=== PATIENT | male | born 1935 | race Caucasian/White ===

== ENCOUNTER 2018-04-16 07:28 | Observation (INO) ==
[2018-04-16] MEDS ORDERED: Nitroglycerin 0.4 MG TAB.SUBL SL ONE (07:43)
[2018-04-16] MEDS ORDERED: Aspirin 81 MG TAB.CHEW PO ONE (07:43)
--- NOTE | 2018-04-16 07:53 | Emergency Department Note ---
Disposition Clinical Impression: NSTEMI (non-ST elevated myocardial infarction) Disposition: Admitted As Inpatient Condition: Fair General Adult HPI - General Chief complaint: ED Chest Pain Stated complaint: chest pain Time Seen by Provider: 04/16/18 07:41 - History of Present Illness Pain Scale: 6 - Related Data Home Medications Medication Instructions Recorded Confirmed Losartan/HCTZ [Hyzaar 50-12.5 1 tab PO DAILY 09/14/15 04/16/18 Tablet] Metoprolol [Lopressor] 50 mg PO DAILY 09/14/15 04/16/18 Aspirin [Lo-Dose Aspirin EC] 81 mg PO DAILY 11/26/17 04/16/18 Allergies Allergy/AdvReac Type Severity Reaction Status Date / Time No Known Allergies Allergy Verified 11/26/17 13:03 Past Medical History - Past Medical History Medical history: Reports: hypertension - Social History Smoking Status: Former smoker Alcohol use: Reports: none Drug use: Reports: none Course Vital Signs Temperature 97.7 F 04/16/18 07:34 Pulse Rate 63 04/16/18 07:34 Respiratory Rate 18 04/16/18 07:34 Blood Pressure 191/81 04/16/18 07:34 O2 Sat by Pulse Oximetry 93 04/16/18 07:34 Temperature 97.9 F 04/16/18 11:02 Pulse Rate 62 04/16/18 11:02 Respiratory Rate 20 04/16/18 11:02 Blood Pressure 153/72 04/16/18 11:02 O2 Sat by Pulse Oximetry 93 04/16/18 11:17 Oxygen Delivery Oxygen Delivery Nasal Cannula Medical Decision Making - Lab Data Result diagrams: 04/16/18 07:58 04/16/18 07:58 Lab Results 04/16/18 04/16/18 04/16/18 Range/Units 07:58 07:58 07:58 WBC 8.4 (4.3-11.1) K/mcL RBC 5.81 H (4.19-5.50) M/mcL Hgb 16.3 (12.9-16.9) g/dL Hct 50.9 H (37.5-50.1) % MCV 87.6 (83.0-100.0) fL MCH 28.1 (28.0-33.3) pg MCHC 32.0 (31.6-35.5) g/dL RDW 14.4 (11.5-14.5) % Plt Count 207 (140-400) K/mcL MPV 9.5 (9.4-12.4) fL Immature Gran % 0.4 (0-4) % Seg Neutrophils % 65.9 % Lymphocytes % 22.7 % Monocytes % 7.6 % Eosinophils % 2.6 % Basophils % 0.8 % Neutrophils # 5.5 (1.6-8.9) K/mcL Lymphocytes # 1.9 (0.6-4.6) K/mcL Monocytes # 0.6 (0.0-1.3) K/mcL Eosinophils # 0.2 (0.0-0.6) K/mcL Basophils # 0.1 (0.0-0.2) K/mcL PT 13.6 H (9.4-12.1) Seconds INR 1.2 APTT 34.3 (26.0-36.0) Seconds Sodium 141 (136-145) mEq/L Potassium 3.8 (3.5-5.1) mEq/L Chloride 106 (98-107) mEq/L Carbon Dioxide 27 (23-29) mEq/L BUN 22 (8-23) mg/dL Creatinine 1.34 H (0.70-1.30) mg/dL Est GFR ( Amer) > 60 (> 60) Est GFR (Non-Af Amer) 51 L (> 60) BUN/Creatinine Ratio 16 (6-26) Glucose 153 H (70-105) mg/dL Calculated Osmolality 298 (280-300) Calcium 9.7 (8.6-10.3) mg/dL Troponin I 0.12 H* (< 0.04) ng/mL Critical Care Time Critical Care Time: Yes Total Critical Care Time: 30 Attestation: The high probability of a clinically significant, sudden or life threatening deterioration of the [] system(s) required my full and direct attention, intervention and personal management. The aggregate critical care time was [] minutes. This time is in addition to time spent performing reported procedures but includes the following: [] Data Review and interpretation [] Patient assessment and monitoring of vital signs [] Documentation [] Medication orders and management Attestation Statement - Attestation Attestation: I examined this patient and my medical decision-making was reviewed with the Resident Physician. I agree with the documented findings, disposition and treatment plan as described except to the extent set forth below. Face to face time provided Patient to ED with CP. h/o CAD. ECG shows paced rhythm. patient in no acute distress
--- NOTE | 2018-04-16 08:08 | Emergency Department Note ---
Disposition Clinical Impression: NSTEMI (non-ST elevated myocardial infarction) Disposition: Admitted As Inpatient Condition: Fair Referrals: Damaso Mcintyre MD [Partnered Physician] - Forms: ED Satisfaction Letter Time of Disposition: 09:29 Chest Pain HPI - General Chief Complaint: ED Chest Pain Stated Complaint: chest pain Time Seen by Provider: 04/16/18 07:41 Source: patient Mode of arrival: ambulatory Limitations: no limitations Vital Signs Reviewed: Yes Nursing Notes Reviewed: Yes - History of Present Illness HPI Narrative: 82-year-old male presents to the emergency department complaining of chest pain. Says chest pains are gone on for 3 days. Patient does have history of stents that was 18 years ago. Patient had a pacemaker replaced approximately 6 months ago. He does have 60 month half-life. He recently just did see Dr. 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 Patient says the chest pain is 6 out of 10 he is having mild shortness of breath as well. He says is a dull ache, left side of his chest rating up into his chin. He says that this is similar last time he had GA. Patient otherwise having no other symptoms. He has no nausea or vomiting including no fevers, chills, headaches, blurry vision, neck pain, back pain, abdominal pain, change in bowel movement, pain with urination, pain or tingling going down arms or legs or generalized weakness. Severity scale (1-10): 6 - Related Data Home Medications Medication Instructions Recorded Confirmed Losartan/HCTZ [Hyzaar 50-12.5 1 tab PO DAILY 09/14/15 11/26/17 Tablet] Metoprolol [Lopressor] 50 mg PO DAILY 09/14/15 11/26/17 Aspirin [Lo-Dose Aspirin EC] 81 mg PO DAILY 11/26/17 11/26/17 Previous Rx's Medication Instructions Recorded HYDROcodone/Acet 5/325 mg [[place]gilvie 1 tab PO Q6HR PRN 5 Days #15 tablet 11/27/17 5-325 mg] Sulfamethoxazole/Trimeth DS 1 each PO BID #20 tablet 11/27/17 [Bactrim DS] Allergies Allergy/AdvReac Type Severity Reaction Status Date / Time No Known Allergies Allergy Verified 11/26/17 13:03 All systems ED: reviewed and negative except as stated. Review of Systems: As Per HPI Chest Pain PMH - Past Medical History Medical history: Reports: hypertension - Social History Smoking Status: Former smoker Alcohol use: Reports: none Drug use: Reports: none Physical Exam - General Limitations: no limitations General appearance: alert, in no apparent distress - Head Head exam: atraumatic, normocephalic, normal inspection - Eye Eye exam: Present: normal appearance, PERRL, EOMI - ENT ENT exam: normal exam, normal oropharynx, mucous membranes moist - Neck Neck exam: Present: normal inspection, full ROM, trachea midline - Chest Chest inspection: Present: normal inspection, symmetric chest wall rise - Respiratory Respiratory exam: Present: normal lung sounds bilaterally - Cardiovascular Cardiovascular exam: Present: regular rate, normal rhythm, normal heart sounds - Abdominal Exam Abdominal exam: Present: soft, Non-Tender. Absent: tenderness, distention, guarding, rebound, rigidity - Extremities Exam Extremities exam: Present: normal inspection, full ROM. Absent: tenderness, pedal edema - Expanded Lower Extremity Exam Neurovascular/Tendon exam: Present: normal capillary refill. Absent: pulse deficit, motor deficit, sensory deficit, tendon deficit - Back Exam Back exam: Present: normal inspection, full ROM. Absent: tenderness, CVA tenderness (R), CVA tenderness (L) - Neurological Exam Neurological exam: Present: alert, oriented X3 - Skin Skin exam: Present: warm, dry, intact, normal color Course Course Narrative: We have basic labs including CBC, BMP, troponin, EKG, chest x-ray will give nitroglycerin and aspirin. Patient most likely will be admitted for further evaluation. Vital Signs Temperature 97.7 F 04/16/18 07:34 Pulse Rate 63 04/16/18 07:34 Respiratory Rate 18 04/16/18 07:34 Blood Pressure 191/81 04/16/18 07:34 O2 Sat by Pulse Oximetry 93 04/16/18 07:34 Temperature 97.7 F 04/16/18 08:02 Pulse Rate 62 04/16/18 08:10 Respiratory Rate 18 04/16/18 08:10 Blood Pressure 121/66 04/16/18 08:10 O2 Sat by Pulse Oximetry 94 04/16/18 08:14 Oxygen Delivery Oxygen Delivery Room Air Chest Pain - [facility] Narrative Medical decision making narrative: 82-year-old male with 3 days of chest pain. After given 1 nitroglycerin his blood pressure did normalize and chest pain did get cut in half. Rate now is 210 chest pain. Labs did come back with an elevated troponin. I spoke with the on-call hospitalist Dr. Ruelas who did recommend we start patient on heparin and they will consult the patient to possible heart catheterization today or tomorrow. Patient does have an NSTEMI. There is no acute EKG changes. He does feel comfortable staying in the hospital. I did speak with the hospitalist who also agreed to admit the patient to their service. Patient can be admitted in stable condition. Patient is also given full dose aspirin here. Chest X-Ray 04/16/18 07:43 IMPRESSION: No acute cardiopulmonary process. D/ / Chacho Sharma MD / Chacho Sharma MD Interpreting Provider: Chacho Sharma MD - Medical Records Medical records reviewed: Yes I reviewed the patient's medical records. - Lab Data Lab results reviewed: Yes I reviewed the patient's lab results. Result diagrams: 04/16/18 07:58 04/16/18 07:58 Lab Results 04/16/18 04/16/18 04/16/18 Range/Units 07:58 07:58 07:58 WBC 8.4 (4.3-11.1) K/mcL RBC 5.81 H (4.19-5.50) M/mcL Hgb 16.3 (12.9-16.9) g/dL Hct 50.9 H (37.5-50.1) % MCV 87.6 (83.0-100.0) fL MCH 28.1 (28.0-33.3) pg MCHC 32.0 (31.6-35.5) g/dL RDW 14.4 (11.5-14.5) % Plt Count 207 (140-400) K/mcL MPV 9.5 (9.4-12.4) fL Immature Gran % 0.4 (0-4) % Seg Neutrophils % 65.9 % Lymphocytes % 22.7 % Monocytes % 7.6 % Eosinophils % 2.6 % Basophils % 0.8 % Neutrophils # 5.5 (1.6-8.9) K/mcL Lymphocytes # 1.9 (0.6-4.6) K/mcL Monocytes # 0.6 (0.0-1.3) K/mcL Eosinophils # 0.2 (0.0-0.6) K/mcL Basophils # 0.1 (0.0-0.2) K/mcL PT 13.6 H (9.4-12.1) Seconds INR 1.2 APTT 34.3 (26.0-36.0) Seconds Sodium 141 (136-145) mEq/L Potassium 3.8 (3.5-5.1) mEq/L Chloride 106 (98-107) mEq/L Carbon Dioxide 27 (23-29) mEq/L BUN 22 (8-23) mg/dL Creatinine 1.34 H (0.70-1.30) mg/dL Est GFR ( Amer) > 60 (> 60) Est GFR (Non-Af Amer) 51 L (> 60) BUN/Creatinine Ratio 16 (6-26) Glucose 153 H (70-105) mg/dL Calculated Osmolality 298 (280-300) Calcium 9.7 (8.6-10.3) mg/dL Troponin I 0.12 H* (< 0.04) ng/mL - Radiology Data Radiology results reviewed: Yes I reviewed the patient's radiology results. - EKG Data EKG attestation: Yes I reviewed and interpreted this EKG. EKG results narrative: EKG done at 0 743 review myself and attending shows a paced rhythm at a rate of 63, WA interval 65, QRS 167, QTC 459. There is no acute ST changes no acute T- wave changes patient does not meet scar posterior criteria. No hypertrophy, heart strain, heart block. No Marita PW/Brugada/HOCM. Unchanged when compared with old EKG done 11/25/17 Heart Score - Score History: Moderately Suspicious EKG: Non Specific repolarisation Disturbance Age: Greater than 65 Risk Factors: Equal/Greater than 3 risk factor or history of atherosclerotic disease Troponin: Less than normal limit HEART Score Total: 6
[2018-04-16 08:25] LABS: Basophils # 0.1 K/mcL (0.0-0.2); Basophils % 0.8 %; Eosinophils # 0.2 K/mcL (0.0-0.6); Eosinophils % 2.6 %; Hematocrit 50.9 % (37.5-50.1); Hemoglobin 16.3 g/dL (12.9-16.9); Immature Granulocytes % 0.4 % (0-4); Lymphocytes # 1.9 K/mcL (0.6-4.6); Lymphocytes % 22.7 %; Mean Corpuscular Hemoglobin 28.1 pg (28.0-33.3); Mean Corpuscular Volume 87.6 fL (83.0-100.0); Mean Platelet Volume 9.5 fL (9.4-12.4); Monocytes # 0.6 K/mcL (0.0-1.3); Monocytes % 7.6 %; Neutrophils # 5.5 K/mcL (1.6-8.9); Platelet Count 207 K/mcL (140-400); Red Blood Count 5.81 M/mcL (4.19-5.50); Red Cell Distribution Width 14.4 % (11.5-14.5); Segmented Neutrophils % 65.9 %
[2018-04-16 08:33] LABS: INR 1.2; Prothrombin Time 13.6 Seconds (9.4-12.1)
[2018-04-16 08:36] LABS: Activated Partial Thrombo Time 34.3 Seconds (26.0-36.0)
[2018-04-16 08:40] LABS: BUN/Creatinine Ratio 16 (6-26); Blood Urea Nitrogen 22 mg/dL (8-23); Calcium 9.7 mg/dL (8.6-10.3); Carbon Dioxide 27 mEq/L (23-29); Chloride 106 mEq/L (98-107); Glucose 153 mg/dL (70-105); Osmolality,Calculated 298 (280-300); Potassium 3.8 mEq/L (3.5-5.1); Sodium 141 mEq/L (136-145); eGFR For Non-African Americans 51 (> 60)
[2018-04-16 09:12] LABS: Troponin I 0.12 ng/mL (< 0.04)
[2018-04-16] MEDS ORDERED: *HR* Heparin 5,000 UNIT/ML VIAL IVP PRN ×2 (09:20)
[2018-04-16] MEDS ORDERED: *HR* Heparin 5,000 UNIT/ML VIAL IVP ONE (09:20)
[2018-04-16] MEDS ORDERED: Heparin 25,000 UNIT/500 ML D5W 25,000 UNIT/500 ML BAG IVC SCH (09:30)
[2018-04-16] MEDS ORDERED: traMADol 50 MG TABLET PO PRN (09:36)
[2018-04-16] MEDS ORDERED: Naloxone 0.4 MG/ML INJ IVP PRN (09:36)
[2018-04-16] MEDS ORDERED: Nitroglycerin 0.4 MG TAB.SUBL SL PRN (09:39)
--- NOTE | 2018-04-16 10:34 | Cardiology Consult Note ---
Date of Encounter: 04/16/18 Time of Encounter: 10:00 Assessment and Plan (1) NSTEMI (non-ST elevated myocardial infarction) Current Visit: Yes Status: Acute type I vs type II, high SRINIVAS 4 CKD 3 P: LHC NPO heparin drip d/w pt and family re risk of BULL given CKD c/w home ASA, BB and ARB start lipitor 20 (2) CAD in [place] artery Current Visit: Yes Status: Acute s/p remote stent. class III angina. need mod statin. 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 All questions were answered. Thank you for involving us in the care of your patient. Please call with any questions. History of Present Illness Consult date: 04/16/18 Requesting physician: Hernan Caban Consult reason: chest pain, elevated troponin Chief complaint: BARNES, cp History of present illness: Mr. 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 Progressive BARNES several months, ET 100 yards, no PND/orthopnea, LE edema. Chest pain 1 wk, daily progressively longer, lasting minutes, yesterday >15 minutes, central chest, pressure/vague dull pain, 2-7/10, vague radiation to neck, walking or at rest, non-positional or pleuritic, no obvious worsening or alleviating factors, didn't take NTG at home, associated with worse dyspnea. Persistent CP yesterday prompted ED visit, BP initially 190/80, normalized after NTG SLx1 with resolution of cp. No syncope, dizziness, palpitations. Lying flat, no O2 ECG AV pacing, trop 0.12 taking ASA 81 daily, heparin gtt started No bleeding, no surgery planned, CKD 3, Cr 1.3 [id number] device check: no events, fnx nl [id number] device St Parag: AP 48%, B[employer] SHOP MANAGER 99%, AMS 14, TTE [id number] Normal LV systolic function, LVEF 60-65%. There is atypical septal motion consistent with ventricular pacing. Mild concentric left ventricular hypertrophy. Mild left ventricular diastolic dysfunction. Normal right ventricular structure and function. A device lead was visualized in the right atrium and right ventricle. No significant valvular dysfunction. Unable to estimate RVSP due to lack of TR jet. Past Med Surg Social Fam HX - Past Medical History Medical history: hypertension Additional medical history: [place] Psychiatric history: no psych history - Past Surgical History Additional surgical history: Aorta (plaque). 1 carotid stent. 6 inches of colon removed. Procedure for kidney stones - Social History Smoking Status: Former smoker Smokeless Tobacco Status: No Alcohol use: none Drug use: none - Additional Family History Additional family history: noncontributory Medications and Allergies Losartan/HCTZ [Hyzaar 50-12.5 Tablet] 1 tab PO DAILY 09/14/15 [History] Metoprolol [Lopressor] 50 mg PO DAILY 09/14/15 [History] Aspirin [Lo-Dose Aspirin EC] 81 mg PO DAILY 11/26/17 [History] 3 Allergy/AdvReac Type Severity Reaction Status Date / Time No Known Allergies Allergy Verified 11/26/17 13:03 All Systems Review: The remainder of the systems were reviewed and are negative - Constitutional Constitutional: fatigue - Cardiovascular Cardiovascular: as per HPI - Respiratory Respiratory: dyspnea - Hematological/Lymphatic Hematologic/Lymphatic: no easy bleeding Physical Examination Vital Signs, Last 4 Hours Pulse Pulse Ox 04/16/18 09:50 60 96 Other: General: NAD, AAO, cogent HEENT: anicteric Neck: no JVD, no bruits Chest: CTA B/L, no W/R/C Heart: RRR, S1/S2, no S3/S4, no M/G/R Abdominal: BS +, soft, ND, NT Peripheral Pulses: radial pulse 2+ B/L, DP 2+ B/L Skin/Extremities: no cyanosis, no LE edema Neurological: grossly non-focal. Results 04/16/18 07:58 04/16/18 07:58 - Imaging and Cardiology Echo: report reviewed Other Results: Device check reviewed - EKG Interpretation EKG results cardiology: personally reviewed ( [employer] MANAGER) Consult Discharge Plan - Plan Referrals: Damaso Mcintyre MD [Primary Care Provider] -
[2018-04-16] MEDS: Metoprolol XL (24 HR) Succ 50 MG TAB.ER.24H PO SCH (10:35)
[2018-04-16 10:42] LABS: INR 1.3; Prothrombin Time 14.5 Seconds (9.4-12.1)
[2018-04-16 10:51] LABS: Chol/HDL Ratio 5.5 (0-4.9)
[2018-04-16 10:53] LABS: Albumin 3.7 g/dL (3.5-5.7); Albumin/Globulin Ratio 1.2 (1.1-2.2); Bilirubin,Direct 0.1 mg/dL (0.0-0.2); Bilirubin,Indirect 0.6 mg/dL (0.0-1.2); Bilirubin,Total 0.7 mg/dL (0.3-1.0); Globulin 3.2 g/dL (2.4-3.5); Total Protein 6.9 g/dL (6.4-8.9)
--- NOTE | 2018-04-16 11:22 | Internal Med History&Physical ---
Date of Encounter: 04/16/18 Time of Encounter: 11:17 Internal Medicine - H&P: HPI Chief complaint: chest pain Plans for Post Hospital Care: Home History of present illness: Mr. Nuñez is a 82 year old male past medical history significant for coronary artery disease, [place] in 1999, CKD, CHF s/p pacemaker. Patient presented to the ED due to chest pain which started on Saturday while he was walking to get the mail. Patient reports that he did not come to the ED on Saturday because he thought the pain was going to go away, he did not take any pain medication for it. Patient describes the pain as constant, dull 8/10 retro-sternal, radiating to his neck and lasting around 10 minutes with which episode. He also reports shortness of breath associated with the chest pain, denies recent similar episodes of chest pain. Reports that he has his pacemaker revised about a week ago and was told that everything was ok. Denies nausea, vomiting or diarrhea. Past Med Surg Social Fam HX - Past Medical History Medical history: hypertension Additional medical history: [place] Psychiatric history: no psych history - Past Surgical History Additional surgical history: Aorta (plaque). 1 carotid stent. 6 inches of colon removed. Procedure for kidney stones - Social History Smoking Status: Former smoker Smokeless Tobacco Status: No Alcohol use: none Drug use: none Internal Medicine - H&P: Meds Losartan/HCTZ [Hyzaar 50-12.5 Tablet] 1 tab PO DAILY 09/14/15 [History] Metoprolol [Lopressor] 50 mg PO DAILY 09/14/15 [History] Aspirin [Lo-Dose Aspirin EC] 81 mg PO DAILY 11/26/17 [History] 3 Allergy/AdvReac Type Severity Reaction Status Date / Time No Known Allergies Allergy Verified 11/26/17 13:03 All Systems PM: A 10-system review of systems was performed and is negative for pertinent findings except as documented above in the HPI. - Constitutional Constitutional: no chills, no fever(s), no falls, no weakness - EENT Eyes: no change in vision, no floaters Nose, mouth and throat: no bleeding gums, no dysphagia - Cardiovascular Cardiovascular ROS IM: chest pain, dyspnea, dyspnea on exertion, no claudication , no diaphoresis, no irregular heart rhythm, no lightheadedness, no palpitations - Respiratory Respiratory: no cough - Gastrointestinal Gastrointestinal: no abdominal pain, no diarrhea, no loose stools, no nausea - Genitourinary Genitourinary ROS male: no dysuria, no hematuria - Musculoskeletal Musculoskeletal ROS IM: no back pain - Neurological Neurological ROS: no dizziness, no headache(s), no weakness - Psychiatric Psychiatric: no anxiety, no irritability - Allergic/Immunologic Allergic/Immunologic: no wheezing (Rest of the review pf system negative. ) - Constitutional Vitals: Temp Pulse Resp BP Pulse Ox 97.7 F 60 18 121/66 96 04/16/18 08:02 04/16/18 09:50 04/16/18 08:10 04/16/18 08:10 04/16/18 09:50 Exam: General: Alert and oriented x4. Mild distress due to chest discomfort. Skin: Normal color, no rash, no lesions. HEENT: EOM, pupils equal, round and reactive. Cardiovascular: RRR, Normal S1 & S2, no rubs, murmurs or gallops. Lungs: Clear to auscultation b/l, no wheezes, rales or crackles. Abdomen: Obese, Soft, non-tender, no rigidity. NABS in all 4 quadrants. Extremities: No deformity, no edema or tenderness, no joint swelling or clubbing. Neurological:Normal cognition and motor skills. Rest of the physical exam is non contributory Internal Med - H&P Results - Labs CBC & Chem 7: 04/16/18 07:58 04/16/18 07:58 Labs: Cardiac Enzymes 04/16/18 Range/Units 10:16 Troponin I 0.18 H* (< 0.04) ng/mL Liver Function 04/16/18 Range/Units 10:16 Total Bilirubin 0.7 (0.3-1.0) mg/dL Direct Bilirubin 0.1 (0.0-0.2) mg/dL AST 23 (13-39) Units/L ALT 16 (7-52) Units/L Alkaline Phosphatase 40 (34-104) Units/L Albumin 3.7 (3.5-5.7) g/dL - Assessment and plan (1) NSTEMI (non-ST elevated myocardial infarction) Current Visit: Yes Status: Acute Assessment and plan: Presented with chest pain and elevated trops. Plan Started on Heparin drip Nitroglycerin 0.4mg SubL Q5Min x3 for chest pain PRN. Asprin 325mg/PO x1 aspirin 81mg/PO daily Plavix or Brillinta as per cardiology discretion Cardiology consulted Serial trops Tramadol 50mg/PO Q6HRs PRN for pain Scheduled for [facility] Lipid panel started on low dose metoprolol 50mg/PO daily telemetry monitoring. Atorvastatin 40mg/PO daily. Will continue Losartan 25mg/PO daily. (2) CAD in [place] artery Current Visit: Yes Status: Chronic Assessment and plan: Plan of care as above. (3) CKD (chronic kidney disease) stage 3, GFR 30-59 ml/min Current Visit: Yes Status: Chronic Assessment and plan: Kidney function stable consider gentle IV hydration with at least 1 litter of fluids after the LCH. (4) Hypertension Current Visit: Yes Status: Chronic Assessment and plan: Patient re-started on his home antihypertensive medications. Qualifiers: Hypertension type: unspecified Qualified Code(s): I10 - Essential (primary ) hypertension - Time Spent With Patient Total time spent is greater than 50% in coordination of care (as documented) at patient's floor/unit and/or counseling patient: 25 - 35 minutes
[2018-04-16] MEDS ORDERED: *HR* Heparin 10,000 UNIT/10 ML VIAL ONE (12:20)
[2018-04-16] MEDS ORDERED: Verapamil 5 MG/2 ML VIAL ONE (12:20)
[2018-04-16] MEDS ORDERED: 0.9 % Sodium Chloride 1,000 ML ONE ×2 (12:21→12:42)
[2018-04-16] MEDS ORDERED: ISOVUE-370 200 ML INFUS..BTL IV ONE (12:21)
[2018-04-16] MEDS ORDERED: Nitroglycerin 1,000 MCG/10 ML VIAL IV ONE (12:21)
[2018-04-16] MEDS ORDERED: Heparin 1,000 UNITS/500 mL 500 ML ONE (12:21)
--- NOTE | 2018-04-16 12:47 | Pre-Sedation Evaluation ---
Pre-sedation evaluation - Pre-sedation checklist Date of procedure: 04/16/18 Procedure: [facility] Recent Vitals: Last Vital Signs Temp 97.9 F 04/16/18 11:02 Pulse 62 04/16/18 11:02 Resp 20 04/16/18 11:02 BP 153/72 04/16/18 11:02 Pulse Ox 93 04/16/18 11:17 H&P (including ROS) documented in medical record: Yes Previous reaction to sedatives/anesthetics: No Dietary Status: NPO 6 hours prior to procedure Airway Assessment: Patient can open mouth completely, TMJ function normal Dentition: dentures removed ASA Classification *see protocol: CLASS II-Mild systemic disease Plan of Care: Pt appropriate candidate for procedure/moderate/conscious sedation , Risks/benefits of procedure/sedation discussed w/ patient/family Cardiac Registry (Cardio Only) - Functional Capacity Functional Capacity: >=4 METS with symptoms - Clincal Frailty Scale Clinical Frailty Scale: Managing Well
[2018-04-16] MEDS ORDERED: *HR* FentaNYL (PF) 100 MCG/2 ML VIAL ONE (12:59)
[2018-04-16] MEDS ORDERED: *HR* Midazolam HCl 2 MG/2 ML VIAL ONE (12:59)
[2018-04-16] MEDS ORDERED: Tirofiban 12.5 MG/250ML 12.5 MG/250 ML BAG ONE (13:27)
[2018-04-16] MEDS ORDERED: *HR* Adenosine 6 MG/2 ML VIAL IVP ONE (13:28)
--- NOTE | 2018-04-16 13:54 | Invasive Diagnostic Lab Proc ---
Name: Sanju Nuñez Date of Study: 04/16/2018 Date: 1935 Ht: 66.1in Medical Record#: [id number] Age: 82 Wt: 208.34lb Gender: Male BSA: 2.04 Order #: [id number] BMI: 33.48 Physicians Procedure Physician: Geovanny Angulo MD, [facility] Referring MD: Referring MD: Staff Name Position Time In Jerrell Cedeno RN Labor Relations Specialist 12:28 PM Galen Mayers RT (R) Monitor 12:28 PM Sydney Post RT (R) Scrub 12:28 PM Indications Indication Non-Stemi Procedures Performed Procedure L HRT ARTERY/VENTRICLE ANGIO PRQ CARD YESSICA STENT W/ANGIO 1 VSL Pre-Procedure Checklist Informed consent is complete signed and on chart. H&P is on chart. ID band is on and ID verified with patient. Patient NPO for procedure The procedure was described for the patient and questions were answered. Blood Pressure: 153/72 ECG is on chart. Rhythm: Paced Plan of Care Patient will tolerate the procedure without complications. Adequate level of comfort will be maintained. Hemodynamics will remain stable Patient will recover from procedure without complications. Respiratory function will be maintained. Cardiac rhythm will remain stable. Patient temperature will be maintained. Patient and/or family have verbalized understanding of the procedure. Patient Education Chief Complaint/Reason for Test: Cardiac Cath Developmental Category: Geriatric (65+ years) Developmentally Appropriate for Age: Yes Learning Barriers: None Education Needs: Procedure Education Method: Verbal Information Taught: Cardiac Cath Educational Evaluation: Able to repeat information Intravenous Access Time IV Size Location DC'd Fluid/Drip Rate Units RN 01:02 PM 20g 1 07/04" Patent On Arrival Rt Antecubital 0.9NaCl 25 ml/hr Jerrell Cedeno RN Allergies NO KNOWN DRUG ALLERGIES Vital Signs Time BP (mmHg) HR (bpm) O2 Sat. RR (bpm) LOC 01:02 PM 153 / 72 62 94 % 16 5 = Fully awake and oriented or at pre-proc level 12:54 PM / % 4 = Oriented but drowsy 01:09 PM / % 4 = Oriented but drowsy 01:24 PM / % 5 = Fully awake and oriented or at pre-proc level 01:04 PM 173 / 97 61 95 % 25 01:08 PM 156 / 76 59 96 % 17 01:13 PM 132 / 70 61 93 % 23 01:18 PM 95 / 53 60 89 % 15 01:24 PM 112 / 54 60 91 % 15 01:28 PM 110 / 58 60 91 % 25 01:33 PM 115 / 61 60 92 % 14 01:38 PM 124 / 71 60 92 % 31 Procedural Medications Time Medication Dose Units Method Given By 01:01 PM Oxygen 2 L/min nasal cannula Jerrell Cedeno RN 01:05 PM Versed 2 mg Intravenous Jerrell Cedeno RN 01:05 PM Fentanyl 50 mcg Intravenous Jerrell Cedeno RN 01:12 PM Lidocaine 2% 0.5 ml Subcutaneous Geovanny Angulo MD, FAC 01:13 PM Heparin 2000 units Nitroglycerin 200 mcg Verapamil 2.5 mg Intraarterial Geovanny Angulo MD, FAC 01:33 PM Aggrastat Bolus: 46 ml Intravenous Jerrell Cedeno RN 01:33 PM Aggrastat 12.5mg/250ml 8.25 ml Intravenous Jerrell Cedeno RN 01:34 PM Nitroglycerin 100 mcg Intravenous Geovanny Angulo MD 01:41 PM Plavix 600 mg Orally Jerrell Cedeno RN ASA Classification: CLASS II- Mild systemic disease (i.e. well-controlled diabetes, hypertension, asthma, cigarette smoking) Dejan Score Preprocedure Postprocedure Activity 2- Moves 4 extremities sustained head lift Activity 2- Moves 4 extremities sustained head lift Circulation 2- SBP +/= 20 points of pre-anesthetic level Circulation 2- SBP +/= 20 points of pre-anesthetic level Consciousness 2- Awake and alert oriented x 3 Consciousness 2- Awake and alert oriented x 3 O2 Saturation 2- Able to maintain O2 satruation of 92% on room air O2 Saturation 2- Able to maintain O2 satruation of 92% on room air Respiratory 2- Able to deep breathe and cough well Respiratory 2- Able to deep breathe and cough well Total Score 10 Total Score 10 Contrast Agent: Isovue Diagnostic Contrast: 58 ml Total Contrast: 58 ml Fluoro Dose: 34 mGy Activated Clotting Time Time Seconds to Clot 01:31 PM 331 Procedure Log Time Note Enter By 12:28 PM Jerrell Cedeno RN Position: Labor Relations Specialist Time in: 12:28 [email or web address] 12:28 PM Galen Mayers RT (R) Position: Monitor Time in: 12:28 [email or web address] 12:28 PM Sydney Post RT (R) Position: Scrub Time in: 12:28 [email or web address] 12:29 PM Patient charges- Angio tray pack, Navilyst 3mm J, Pulse Oximetry and ACIST tubing and transducer [email or web address] 12:53 PM CathStat 12:53 PM Pt arrived to assistant laboratory director 1 at 12:53 [email or web address] 12:53 PM Case Delayed No [email or web address] 12:54 PM Time: 12:54 Patient comfortable and pain free: Yes [email or web address] 12:54 PM Time: 12:54LOC: 5 = Fully awake and oriented or at pre-proc level [email or web address] 12:54 PM Clinical Presentation: Non-STEMI ilson 12:55 PM Physician arrived 12: [email or web address] 12:55 PM Meet and greet completed ilson 12:55 PM Sign in performed according to hospital policy. Informed consent was obtained. ilson 12:56 PM Procedure start 12:55 [email or web address] 01:00 PM Vitals capture started with the following parameters, Patient=Adult, Interval=5 min, Initial Tgipqdwz=073 mmHg, Deflation Rate=3 mmHg, Cuff placed on Right Arm 01:00 PM Recorded ECG: HR=63 Condition=Condition 1 01:01 PM Hair removed from procedure site in procedure lab using clippers. Right wrist prepped with Chloraprep by Sydney Post RT (R), then patient was draped. Skin intact. : PM Hair removed from procedure site in procedure lab using clippers. Bilateral groin prepped with Chloraprep by Sydney Post (R), then patient was draped. Skin intact. : PM Time: 13: Oxygen on at 2 L/min per nasal cannula by Jerrell Cedeno RN :02 PM ASA Class CLASS II- Mild systemic disease (i.e. well-controlled diabetes, hypertension, asthma, cigarette smoking) [email or web address] 01:02 PM Vitals capture started with the following parameters, Patient=Adult, Interval=5 min, Initial Ksvdqzit=340 mmHg, Deflation Rate=3 mmHg, Cuff placed on Right Arm 01:04 PM HR=61 bpm, YFAS=532/97 mmhg, SpO2=95.0 %, Resp=25 B/min 01:05 PM Time: 13:05 Versed 2 mg Intravenous Given by Jerrell Cedeno RN [email or web address] 01:05 PM Time: 13:05 Fentanyl 50 mcg Intravenous Given by Jerrell Cedeno RN [email or web address] 01:08 PM HR=59 bpm, GZEQ=052/76 mmhg, SpO2=96.0 %, Resp=17 B/min 01:09 PM Time: 12:54LOC: 4 = Oriented but drowsy [email or web address] 01:09 PM Time: 12:54 Patient comfortable and pain free: Yes [email or web address] 01:09 PM Pressure channel 1 zeroed. 01:12 PM Time out was performed according to hospital policy. Conscious sedation and anesthesia was achieved (see medication log with in this report above) [email or web address] 01:12 PM Time: 13:12 0.5 ml Lidocaine 2% to right radial Subcutaneous Given by Geovanny Angulo MD, [facility] [email or web address] 01:13 PM Access obtained by percutaneous puncture. 6Fr 10cm Terumo Glidesheath sheath placed in right Radial artery. [id number] [email or web address] :13 PM HR=61 bpm, VHJW=909/70 mmhg, SpO2=93.0 %, Resp=23 B/min 01:13 PM 0.035 145cm Navilyst 3mmJ wire [id number] [email or web address] 01:13 PM Time: 13:13 Patient given 2,000 units Heparin, 200 mcg Nitroglycerin, and 2.5 mg Verapamil Intraarterial by Geovanny Angulo MD, [facility]. This is given to reduce risk of vessel spasm and thrombosis. [email or web address] 01:15 PM 5Fr TIG catheter inserted over the wire [facility] [email or web address] 01:16 PM Recorded Pressure: Ao, HR=60, Condition=Condition 1 (Aorta) Ao 86/42/59 01:16 PM LCA angiography performed in multiple views. [email or web address] 01:18 PM HR=60 bpm, NIBP=95/53 mmhg, SpO2=89.0 %, Resp=15 B/min 01:19 PM RCA angiography performed in multiple views. 01:19 PM Recorded Pressure: Ao, HR=60, Condition=Condition 1 (Aorta) Ao 101/54/72 01:20 PM Coronary Dominance: right [email or web address] 01:20 PM Lesion found in Proximal LAD. Pre Stenosis: 70 Pre SRINIVAS Flow: 01:21 PM Proximal Left Anterior Descending Coronary Artery with 70% stenosis. If graft is supplying this territory, 0 % stenosis. bw:21 PM Lesion found in Mid Circumflex. Pre Stenosis: 60 Pre SRINIVAS Flow: :21 PM Circumflex, Obtuse Marginal, Left Posterior Descending, and Left Posterolateral Coronary Arteries with 60 % stenosis. If graft is supplying this area, 0 % stenosis bw:21 PM Catheter removed : PM 5Fr Pigtail catheter inserted over the wire [facility] :21 PM Lesion found in Mid RCA. Pre Stenosis: 99 Pre SRINIVAS Flow: :21 PM Right Coronary, Right Posterior Descending Arteries with Right Posterolateral and Acute Marginal branches with 99 % stenosis. If graft is supplying this area, 0 % stenosis bw: PM Catheter crossed the aortic valve and was selectively placed in the left ventricle. Pressures recorded on pullback for left heart catheterization. PM Bolus angiogram of left Ventricle complete: 10 ml/sec for a total of 30 mls PM Recorded Pressure: LV, HR=61, Condition=Condition 1 (Left Ventricle) LV 108/9/18 : PM HR=60 bpm, GREA=127/54 mmhg, SpO2=91.0 %, Resp=15 B/min : PM Recorded Pressure: LV, Ao, HR=69, Condition=Condition 1 (Left Ventricle) LV 112/13/35, (Aorta) Ao 123/50/74 : PM Time: 13:09 Patient comfortable and pain free: Yes PM Time: 13:09LOC: 4 = Oriented but drowsy PM Catheter removed PM Inflation device was opened. : PM 6Fr JR 4 [place] Bright-Tip guide catheter was used to cannulate the PCI vessel successfully. reused? No PM drawing ACT PM .014 [place] 190cm guide wire across target lesion- successful. reused? No PM Recorded Pressure: Ao, HR=60, Condition=Condition 1 (Aorta) Ao 113/53/76 :28 PM HR=60 bpm, UPLO=520/58 mmhg, SpO2=91.0 %, Resp=25 B/min : PM 2.0 mm x 20 mm Emerge Monorail balloon across target lesion- successful. reused? No [email or web address] 01:30 PM Balloon inflated @ 6 lukas for 18 seconds [email or web address] 01:30 PM Balloon catheter removed intact. [email or web address] 01:31 PM At 13:31 the ACT was 331 seconds. [email or web address] 01:32 PM 4.0mm x 20mm Synergy drug-eluting stent across target lesion- successful Lot #[id number] [email or web address] 01:33 PM HR=60 bpm, MVBH=123/61 mmhg, SpO2=92.0 %, Resp=14 B/min 01:33 PM Time: 13:33 Aggrastat Bolus: 46 ml Intravenous Given by Jerrell Cedeno RN Monzon pump [email or web address] 01:33 PM Time: 13:33 Aggrastat 12.5mg/250ml 8.25 ml Intravenous Given by Jerrell Cedeno RN Monzon pump [email or web address] 01:33 PM Stent deployed @ 11 lukas for 14 seconds [email or web address] 01:34 PM Time: 13:34 Nitroglycerin 100 mcg Intravenous Given by Geovanny Angulo MD [email or web address] 01:34 PM Stent delivery system removed intact. [email or web address] 01:34 PM Guide wire removed intact. [email or web address] 01:35 PM Guide catheter removed intact. [email or web address] 01:36 PM Arterial sheath pulled, Vasc Band closure device used and was Successful S/N. [email or web address] 01:36 PM 10 ml air in Vasc Band. [email or web address] 01:36 PM Procedure completed at 13:36 04/16/2018 [email or web address] 01:37 PM Sign out completed: Radiation Dose 422.58 mGy, 34.3363 Gy/cm2 Fluoro Time: 4.0 Isovue 370 - 200ml contrast 58 ml given by Geovanny Angulo MD, [facility]. Complications: None. The patient was discharged out of the label paster in stable condition. Cardiac Rehab Consult needed: YesConfirmed administered medications: Yes [email or web address] 01:37 PM Isovue 370 - 200ml,1 Bottle(s) used. [email or web address] 01:37 PM Estimated Blood Loss: less than 20cc [email or web address] 01:37 PM Post ECG Paced [email or web address] 01:37 PM Post Blood Pressure 115/61 [email or web address] 01:37 PM 13:37 Post Pulses Rt Radial 1+ [email or web address] 01:38 PM Information taught Cardiac Cath and PCI [email or web address] 01:38 PM Education needs Procedure, Plan of Care, and Disease Process [email or web address] 01:38 PM HR=60 bpm, LKXH=076/71 mmhg, SpO2=92.0 %, Resp=31 B/min 01:38 PM Learning barriers :Sedated [email or web address] 01:38 PM Education Methods Verbal [email or web address] 01:38 PM Education evaluation Needs further instruction [email or web address] 01:38 PM Site status No bleeding/hematoma - Rt Wrist as reported by Sydney Post RT (R) at 13:38 [email or web address] 01:38 PM Delay to floor No [email or web address] 01:38 PM Complications: None 2 01:39 PM Time: 13:24LOC: 5 = Fully awake and oriented or at pre-proc level [email or web address] 01:39 PM Time: 13:24 Patient comfortable and pain free: Yes [email or web address] 01:41 PM Family placed in consult room. [email or web address] 01:41 PM Time: 13:41 Plavix 600 mg Orally Given by Jerrell Cedeno RN 01:42 PM Vitals capture stopped. 01:44 PM Report given to zhane CHEEK Pt taken to 2A Room #11. 13:42 [email or web address] 01:47 PM Patient out of room: 13:47 [email or web address] Complications Complication None None Hemodynamics Pressures Site Systolic/A Wave Diastolic/V Wave Mean AO 86 42 59 AO 101 54 72 LV 108 9 18 LV 112 13 35 AO 123 50 74 AO 113 53 76 Post Procedure Information Blood Pressure: 115/61 mmHg Rhythm: Paced Post procedural instructions were given Closure Device Time Device Success/Fail 04/16/2018 1:36:00 PM Mechanical Compression Successful Site Checks Time Location Status Staff Sheath In? Note 01:38 PM Rt Wrist No bleeding/hematoma Sydney Post RT (R) Pulses Time Site Pre-Procedure Post-Procedure Note 04/16/2018 1:02:00 PM Bilateral DP & PT 1+ 04/16/2018 1:02:00 PM Rt Radial 2+ 1:37:00 PM Rt Radial 1+ Updated by Galen Mayers RT (R) on 04/16/2018 1:47:19 PM RT Pepper electronically signed on 04/16/2018 1:47:42 PM with status of Final
[2018-04-16] MEDS ORDERED: Tirofiban 12.5 MG/250ML 12.5 MG/250 ML BAG IVC SCH (14:00)
[2018-04-16 23:40] VITALS: BP 145/73
[2018-04-17] MEDS ORDERED: Aspirin Enteric Coated 81 MG Tablet PO SCH (09:00)
[2018-04-17 11:12] LABS: Hematocrit 49.5 % (37.5-50.1); Hemoglobin 16.2 g/dL (12.9-16.9)
[2018-04-17] MEDS: Metoprolol XL (24 HR) Succ 50 MG TAB.ER.24H PO SCH (11:59)
--- NOTE | 2018-04-17 12:07 | Discharge Summary ---
- NOTES TO OUTPATIENT PROVIDER Notes to Outpatient Provider: 82-year-old male with coronary artery disease, chronic kidney disease, CHF with pacemaker was admitted for NSTEMI, status post left heart catheter with stent placement. Patient has since been chest pain- free and denies shortness of breath. Access site is clean without any symptoms. Lipitor and Plavix has been added to the patient's home regimen of aspirin, metoprolol and losartan hydrochlorothiazide. The patient is discharged in clinically stable condition to follow up with primary care physician and cardiology. Plan of care discussed, verbalized understanding. Orders not resulted at time of discharge: Pending orders 04/16/18 10:48 Left Heart Cath [CL Cardiac Catheterization] [CL] Routine 04/16/18 13:51 ECG 12 lead ECG [ECG] Stat 04/17/18 03:26 Basic Metabolic Panel AM 0400 Magnesium AM 0400 Phosphorous AM 0400 04/17/18 04:00 Hemoglobin and Hematocrit [HEME] AM 0400 04/17/18 06:00 ECG 12 lead ECG [ECG] AM 0600 Date of Encounter: 04/17/18 Time of Encounter: 07:55 - Discharge Diagnosis (1) NSTEMI (non-ST elevated myocardial infarction) Priority: Primary Status: Acute Assessment and Plan: Presented with chest pain and elevated trops. ekg showed paced rhythm, he was started on heprin drip , received asprin 325mg/PO x1 , added lipitot to home regimen he is s/p LHC on 04/16 with YESSICA placement, He is seen this mrn, chest pain free, asymptomatic , no SOB. Discharged home on ASA, Plavix, Metoprolol, Losartan-HCTZ and Lipitor Follow up with PCP and cardiology (2) CKD (chronic kidney disease) stage 3, GFR 30-59 ml/min Priority: Secondary Status: Chronic (3) CAD in [place] artery Priority: Secondary Status: Chronic (4) Hypertension Priority: Secondary Status: Chronic Qualifiers: Hypertension type: essential hypertension Qualified Code(s): I10 - Essential (primary) hypertension Hospital course: Mr. Nuñez is a 82 year old male with coronary artery disease, HTN, chronic kidney disease, CHF with pacemaker was admitted for NSTEMI, status post left heart catheter with stent placement. Patient has since been chest pain-free and denies shortness of breath. Access site is clean without any symptoms. Lipitor and Plavix has been added to the patient's home regimen of aspirin, metoprolol and losartan hydrochlorothiazide. The patient is discharged in clinically stable condition to follow up with primary care physician and cardiology. Plan of care discussed, verbalized understanding. See each diagnosis for details of hospital course Plan of care discussed, verbalized understanding Discharge discussed with: patient, nurse - Time Spent with Patient Total time spent providing and/or coordinating discharge services: Greater than 30 minutes - Discharge Medications Prescriptions: Atorvastatin [Lipitor] 40 mg PO HS #30 tablet Clopidogrel [Plavix] 75 mg PO DAILY #30 tablet Home Medications: Losartan/HCTZ [Hyzaar 50-12.5 Tablet] 1 tab PO DAILY 09/14/15 [History] Metoprolol [Lopressor] 50 mg PO DAILY 09/14/15 [History] Aspirin [Lo-Dose Aspirin EC] 81 mg PO DAILY 11/26/17 [History] Atorvastatin [Lipitor] 40 mg PO HS #30 tablet 04/17/18 [Rx] Clopidogrel [Plavix] 75 mg PO DAILY #30 tablet 04/17/18 [Rx] Allergies/Adverse Reactions: Allergy/AdvReac Type Severity Reaction Status Date / Time No Known Allergies Allergy Verified 11/26/17 13:03 Date of admission: 04/16/18 09:41 Primary care physician: Damaso Mcintyre MD Consults: 04/16/18 09:16 Consult to Cardiology [CONS] Stat Comment: Consulting Provider: Cardiology Flavia Reason for Consult: NSTEMI Time Notified: 09:16 Call Completed: Yes 04/16/18 13:51 Consult to Cardiac Rehabilitation-Phase1 [CONS] Routine Comment: Reason for Consult: post op PCI Call Completed: Yes Discharging clinician: Oswaldo Raza Anticipated date of discharge: 04/17/18 - Constitutional Vitals: Temp Pulse Resp BP Pulse Ox 98.0 F 63 18 145/73 92 04/16/18 23:38 04/16/18 23:38 04/16/18 23:38 04/16/18 23:38 04/16/18 23:38 General appearance: Present: A&O X 3, pleasant, no acute distress, obese Exam: see below - Head Head exam: Present: atraumatic, normocephalic - Eye Eye exam: Present: PERRL, conjuntiva pink, sclera anicteric Pupils: Present: PERRL - Neck Neck exam general surgery: Present: supple, trachea midline. Absent: lymph adenopathy - Respiratory Respiratory exam: Present: CTAB. Absent: accessory muscle use, rales, rhonchi, wheezes - Cardiovascular Cardiovascular exam: Present: RRR, +S1, +S2. Absent: diastolic murmur, gallop, rubs, systolic murmur - GI/Abdominal GI/Abdominal exam: Present: normal bowel sounds, soft, no peritoneal signs. Absent: distended, tenderness - Extremities Exam Extremities exam: Present: warm, radial pulses palpable and symmetrical. Absent: calf tenderness, cyanotic, pedal edema - Neurological Exam Neurological exam: Present: CN II-XII intact, oriented X3, no focal deficits. Absent: pronater drift, facial droop, speech deficit - Skin Skin exam: Present: dry, intact - Patient Status Disposition: Home, Self-Care Condition: Good Functional capacity at discharge: independent ambulation Overall status at discharge: patient is progressing back to baseline - Discharge Instructions Follow Up With: Damaso Mcintyre MD [Primary Care Provider] - - Diet and Activity Activity: resume usual activities as tolerated Diet: low fat, low cholesterol, low salt diet
[2018-04-17 12:22] LABS: BUN/Creatinine Ratio 16 (6-26); Blood Urea Nitrogen 20 mg/dL (8-23); Calcium 9.4 mg/dL (8.6-10.3); Carbon Dioxide 25 mEq/L (23-29); Chloride 107 mEq/L (98-107); Glucose 134 mg/dL (70-105); Magnesium 1.9 mg/dL (1.6-2.6); Osmolality,Calculated 293 (280-300); Phosphorous 2.7 mg/dL (2.7-4.5); Potassium 3.5 mEq/L (3.5-5.1); Sodium 139 mEq/L (136-145); eGFR For Non-African Americans 54 (> 60)
--- NOTE | 2018-04-17 12:27 | Event Note ---
Date of Encounter: 04/17/18 Time of Encounter: 12:26 - Cardiology Event Note Patient seen and examined during [facility]. See paper progress note. Cardiology signed off and will follow in outpateint setting. Follow up set.
[2018-04-17] MEDS ORDERED: Metoprolol XL (24 HR) Succ 50 MG TAB.ER.24H PO ONE (12:44)
[2018-04-17] MEDS ORDERED: Aspirin Enteric Coated 81 MG Tablet PO ONE (12:44)
--- NOTE | 2018-04-17 13:30 | Electrocardiograph Report ---
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
--- NOTE | 2018-04-17 13:51 | Electrocardiograph Report ---
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
== END 2018-04-17 12:45 | disposition home or self-care (01) ==
LOC: 2ANU 07:28 → EMEROOARM 07:28 → 2ANU 10:19
PROVIDERS: ADMIT Internal Medicine; ATTEND Internal Medicine

== ENCOUNTER 2021-04-27 09:53 | Inpatient (IN) ==
[2021-04-27 11:44] LABS: Hemoglobin 16.4 g/dL (12.9-16.9); Mean Corpuscular HGB Conc 32.2 g/dL (31.6-35.5); Mean Corpuscular Hemoglobin 29.9 pg (28.0-33.3); Mean Corpuscular Volume 92.9 fL (83.0-100.0); Mean Platelet Volume 9.1 fL (9.4-12.4); Platelet Count 231 K/mcL (140-400); Red Blood Count 5.49 M/mcL (4.19-5.50); Red Cell Distribution Width 13.7 % (11.5-14.5); White Blood Count 8.3 K/mcL (4.3-11.1)
[2021-04-27 12:05] LABS: BUN/Creatinine Ratio 13 (6-26); Blood Urea Nitrogen 17 mg/dL (8-23); C-Reactive Protein 12 mg/L (Less than 10); Calcium 9.2 mg/dL (8.6-10.3); Carbon Dioxide 28 mEq/L (23-29); Chloride 103 mEq/L (98-107); Glucose 115 mg/dL (70-105); Osmolality,Calculated 284 (280-300); Potassium 4.8 mEq/L (3.5-5.1); Sodium 136 mEq/L (136-145); eGFR For African Americans > 60 (> 60); eGFR For Non-African Americans 51 (> 60)
[2021-04-27] MEDS ORDERED: Piperacillin/Tazobactam 3.375 GM in 0.9 % Sodium Chloride Mini Bag 100 ML IVPB ONE (12:48)
[2021-04-27] MEDS ORDERED: Vancomycin 1,250 MG/262.5 ML IV.SOLN IVPB ONE (13:00)
[2021-04-27] MEDS ORDERED: *HR* HYDROcodone/Acet 5/325 mg TABLET PO PRN (13:43)
[2021-04-27] MEDS ORDERED: Acetaminophen 325 MG TABLET PO PRN (13:43)
[2021-04-27] MEDS ORDERED: Naloxone 0.4 MG/ML INJ IVP PRN (13:43)
[2021-04-27] MEDS ORDERED: Melatonin 3 MG TABLET PO PRN (13:43)
[2021-04-27] MEDS ORDERED: *HR* OxyCODONE Immed Rel 5 MG TABLET PO PRN (13:43)
[2021-04-27] MEDS ORDERED: Ondansetron 4 MG/2 ML VIAL IVP PRN (13:43)
[2021-04-27] MEDS: Piperacillin/Tazobactam 3.375 GM in 0.9 % Sodium Chloride Mini Bag 100 ML IVPB SCH (21:00)
[2021-04-28 03:31] LABS: Hematocrit 51.4 % (37.5-50.1); Hemoglobin 16.3 g/dL (12.9-16.9); Mean Corpuscular HGB Conc 31.7 g/dL (31.6-35.5); Mean Corpuscular Hemoglobin 29.6 pg (28.0-33.3); Mean Corpuscular Volume 93.3 fL (83.0-100.0); Mean Platelet Volume 9.2 fL (9.4-12.4); Platelet Count 205 K/mcL (140-400); Red Blood Count 5.51 M/mcL (4.19-5.50); Red Cell Distribution Width 13.8 % (11.5-14.5); White Blood Count 7.8 K/mcL (4.3-11.1)
[2021-04-28 03:41] LABS: BUN/Creatinine Ratio 15 (6-26); Blood Urea Nitrogen 20 mg/dL (8-23); Calcium 9.1 mg/dL (8.6-10.3); Carbon Dioxide 29 mEq/L (23-29); Chloride 105 mEq/L (98-107); Glucose 103 mg/dL (70-105); Osmolality,Calculated 291 (280-300); Sodium 139 mEq/L (136-145); eGFR For African Americans > 60 (> 60); eGFR For Non-African Americans 50 (> 60)
[2021-04-28] MEDS: Piperacillin/Tazobactam 3.375 GM in 0.9 % Sodium Chloride Mini Bag 100 ML IVPB SCH ×3 (05:13→21:05)
[2021-04-28] MEDS ORDERED: Lidocaine -MPF 2% 5 ML VIAL ONE (07:51)
[2021-04-28] MEDS ORDERED: *HR* Succinylcholine 200 MG/10 ML VIAL IVP ONE (07:51)
[2021-04-28] MEDS ORDERED: Ondansetron 4 MG/2 ML VIAL ONE (07:51)
[2021-04-28] MEDS ORDERED: *HR* Rocuronium Bromide 50 MG/5 ML VIAL ONE (07:51)
[2021-04-28] MEDS ORDERED: Lidocaine HCL 4 ML Topical Solution (Laryng-O-Jet Kit Sterile Pak) TP ONE (07:51)
[2021-04-28] MEDS ORDERED: *HR* FentaNYL (PF) 100 MCG/2 ML VIAL ONE (07:51)
[2021-04-28] MEDS ORDERED: *HR* Propofol 200 MG/20 ML VIAL IVP ONE (07:51)
[2021-04-28] MEDS ORDERED: Vancomycin 1,250 MG/262.5 ML IV.SOLN IVPB SCH (14:00)
[2021-04-28] MEDS: Aspirin Enteric Coated 81 MG Tablet PO SCH (16:12)
[2021-04-28] MEDS ORDERED: Bupivacaine/Clonidine Syringe 20 ML, Syringe LUER-LOK 1 EACH TP ONE (17:30)
[2021-04-29 04:33] LABS: Basophils # 0.1 K/mcL (0.0-0.2); Eosinophils # 0.4 K/mcL (0.0-0.6); Eosinophils % 5.9 %; Hematocrit 49.8 % (37.5-50.1); Immature Granulocytes % 0.4 % (0-4); Lymphocytes # 1.4 K/mcL (0.6-4.6); Mean Corpuscular HGB Conc 32.1 g/dL (31.6-35.5); Mean Corpuscular Volume 93.3 fL (83.0-100.0); Mean Platelet Volume 9.2 fL (9.4-12.4); Monocytes # 0.6 K/mcL (0.0-1.3); Monocytes % 8.7 %; Neutrophils # 4.4 K/mcL (1.6-8.9); Platelet Count 194 K/mcL (140-400); Red Blood Count 5.34 M/mcL (4.19-5.50); White Blood Count 6.8 K/mcL (4.3-11.1)
[2021-04-29 05:30] LABS: Calcium 9.1 mg/dL (8.6-10.3); Potassium 3.8 mEq/L (3.5-5.1)
[2021-04-29] MEDS: Piperacillin/Tazobactam 3.375 GM in 0.9 % Sodium Chloride Mini Bag 100 ML IVPB SCH ×3 (05:48→21:37)
[2021-04-29] MEDS: Aspirin Enteric Coated 81 MG Tablet PO SCH (09:44)
[2021-04-29] MEDS: Vancomycin 1,500 MG/265 ML IV.SOLN IVPB SCH (14:41)
[2021-04-30] MEDS: Piperacillin/Tazobactam 3.375 GM in 0.9 % Sodium Chloride Mini Bag 100 ML IVPB SCH ×2 (05:09→13:13)
[2021-04-30 05:13] LABS: Basophils # 0.1 K/mcL (0.0-0.2); Basophils % 1.3 %; Eosinophils # 0.4 K/mcL (0.0-0.6); Eosinophils % 4.7 %; Hematocrit 51.4 % (37.5-50.1); Hemoglobin 16.6 g/dL (12.9-16.9); Immature Granulocytes % 0.7 % (0-4); Lymphocytes # 1.5 K/mcL (0.6-4.6); Lymphocytes % 18.4 %; Mean Corpuscular HGB Conc 32.3 g/dL (31.6-35.5); Mean Corpuscular Hemoglobin 30.2 pg (28.0-33.3); Mean Corpuscular Volume 93.6 fL (83.0-100.0); Monocytes # 0.6 K/mcL (0.0-1.3); Neutrophils # 5.6 K/mcL (1.6-8.9); Platelet Count 193 K/mcL (140-400); Red Blood Count 5.49 M/mcL (4.19-5.50); Segmented Neutrophils % 67.9 %; White Blood Count 8.3 K/mcL (4.3-11.1)
[2021-04-30 05:24] LABS: INR 1.8; Prothrombin Time 20.3 Seconds (9.4-12.1)
[2021-04-30 05:38] LABS: BUN/Creatinine Ratio 14 (6-26); Blood Urea Nitrogen 16 mg/dL (8-23); Carbon Dioxide 25 mEq/L (23-29); Chloride 112 mEq/L (98-107); Glucose 93 mg/dL (70-105); Osmolality,Calculated 297 (280-300); Potassium 3.9 mEq/L (3.5-5.1); Sodium 143 mEq/L (136-145); eGFR For African Americans > 60 (> 60); eGFR For Non-African Americans 59 (> 60)
[2021-04-30] MEDS: amLODIPine 5 MG TABLET PO SCH (09:02)
[2021-04-30] MEDS: Aspirin Enteric Coated 81 MG Tablet PO SCH (09:02)
[2021-04-30] MEDS: Losartan/HCTZ 50-12.5 TABLET PO SCH (09:02)
[2021-04-30] MEDS: Vancomycin 1,500 MG/265 ML IV.SOLN IVPB SCH (13:14)
[2021-04-30] MEDS ORDERED: cefTRIAXone 2,000 MG in Water for inj. (sterile) 20 ML IVP SCH (15:00)
[2021-05-01 05:50] LABS: Basophils # 0.1 K/mcL (0.0-0.2); Basophils % 1.1 %; Eosinophils # 0.4 K/mcL (0.0-0.6); Eosinophils % 4.6 %; Hemoglobin 16.6 g/dL (12.9-16.9); Immature Granulocytes % 0.5 % (0-4); Lymphocytes # 1.4 K/mcL (0.6-4.6); Lymphocytes % 17.6 %; Mean Corpuscular HGB Conc 31.3 g/dL (31.6-35.5); Mean Corpuscular Hemoglobin 29.1 pg (28.0-33.3); Monocytes # 0.6 K/mcL (0.0-1.3); Monocytes % 7.7 %; Neutrophils # 5.5 K/mcL (1.6-8.9); Platelet Count 194 K/mcL (140-400); Segmented Neutrophils % 68.5 %; White Blood Count 8.1 K/mcL (4.3-11.1)
[2021-05-01 06:03] LABS: BUN/Creatinine Ratio 14 (6-26); Blood Urea Nitrogen 18 mg/dL (8-23); Calcium 9.4 mg/dL (8.6-10.3); Carbon Dioxide 26 mEq/L (23-29); Chloride 108 mEq/L (98-107); Glucose 98 mg/dL (70-105); Osmolality,Calculated 292 (280-300); Potassium 3.7 mEq/L (3.5-5.1); Sodium 140 mEq/L (136-145); eGFR For African Americans > 60 (> 60); eGFR For Non-African Americans 53 (> 60)
[2021-05-01] MEDS: 0.9 % Sodium Chloride 1,000 ML IVC SCH ×2 (07:18→07:19)
[2021-05-01 07:49] VITALS: TEMP 97.6
[2021-05-01] MEDS: Losartan/HCTZ 50-12.5 TABLET PO SCH (08:53)
[2021-05-01] MEDS: Aspirin Enteric Coated 81 MG Tablet PO SCH (08:53)
[2021-05-01] MEDS: amLODIPine 5 MG TABLET PO SCH (08:53)
[2021-05-01 12:27] LABS: C-Reactive Protein 7 mg/L (Less than 10)
[2021-05-01 12:56] VITALS: BP 181/72; PULSE 60; O2SAT 95
== END 2021-05-01 14:47 | disposition home or self-care (01) | DRG 563 ==
LOC: EMEROOARM 09:53 → 4WAOSI 09:53 → SUATTDRO 13:50 → 4WAOSI 14:46
PROVIDERS: ADMIT Family Medicine; ATTEND Internal Medicine